=== PATIENT | male | born 1960 | race Caucasian/White ===

== ENCOUNTER 2022-10-15 08:01 | Outpatient (AMB) | payer BC, SELFPAY ==
--- NOTE | 2022-10-15 08:19 | MHC.OFFWIV ---
Intake Vital Signs 10/15/22 08:21 BP 110/62 Blood Pressure Location Rt brachial Position Sitting Respiration 18 Pulse 72 Pulse Source Pulse Oximeter Temp 98.1 F Temp Source Oral Pulse Oximetry (%) 99 Oxygen Delivery Method Room Air Intake Visit Reasons: EP Nasal Drip Patient Tobacco Use Status: Former Tobacco user Gift Wrapper Required: No Allergies No Known Allergies Allergy (Verified 10/15/22 08:28) Medication List - Last Reconciled 10/15/22 by Ping Hobson RN aspirin (Adult Low Dose Aspirin) 81 mg PO DAILY Do you need a note to return to daycare/school/sports/work: No HPI EP Nasal Drip HPI Details Patient presents for a sick visit. Reporting symptoms of sinus congestion, sore throat and difficulty swallowing. Low-grade fever. No family member is sick. No recent travel. Patient reports symptoms of malaise and fatigue. [facility] Social History Patient Tobacco Use Status: Former Tobacco user Physical Exam Vital Signs: Last Vital Signs Temp 98.1 F 10/15/22 08:21 Pulse 72 10/15/22 08:21 Resp 18 10/15/22 08:21 BP 110/62 10/15/22 08:21 Pulse Ox 99 10/15/22 08:21 Oxygen Delivery Method Room Air 10/15/22 08:21 Const General: cooperative and healthy appearing Nutritional Appearance: well nourished Orientation/consciousness: patient oriented x3 Limitations: no limitations HEENT Head: Yes normal to inspection Eyes General: appearance normal, both eyes and all related structures Neck Neck: Yes normal visual inspection Chest Chest palpation & inspection: normal palpation of entire chest wall Resp Effort & Inspection: normal respiratory effort Neuro General: patient oriented x3 Assessment & Plan Assessment & Plan (1) URI (upper respiratory infection): Code(s): J06.9 - Acute upper respiratory infection, unspecified Plan: Antibiotics ordered. Increase fluid intake. Tylenol for aches and pains. If symptoms worsen, follow-up here for a recheck. Coding Level of Care Code Est Pt Level 3 (73419) Diagnoses URI (upper respiratory infection) J06.9
[2022-10-15 08:21] VITALS: BP 110/62; PULSE 72; RESP 18; TEMP 36.7; O2SAT 99
== END 2022-10-15 08:28 | disposition home or self-care (01) ==
PROVIDERS: Visit Provider Internal Medicine
DX: J06.9 Acute upper respiratory infection, unspecified (principal)
CPT/HCPCS: 99213

== ENCOUNTER 2022-10-22 08:01 | Outpatient (AMB) | payer BC, SELFPAY ==
--- NOTE | 2022-10-22 08:03 | AM.OFFWIN_ITS ---
Intake Vital Signs 10/22/22 08:06 Height 5 ft 8 in BP 110/70 Blood Pressure Location Lt brachial Position Sitting Pulse 62 Pulse Source Pulse Oximeter Temp 97.8 F Temp Source Temporal Artery Scan Pulse Oximetry (%) 98 Intake Visit Reasons: EST/ear infection ongoing(lobby) Intake Note: pt is here for c/o ear infection ongoing, pt was here on saturday, was given antibiotics and finished meds on saturday and still feels the pain and hasa drainage Patient Tobacco Use Status: Former Tobacco user Accompanied by: Self / Same As Patient Allergies No Known Allergies Allergy (Verified 10/22/22 08:27) Medication List - Last Reconciled 10/22/22 by Addi Maria MD aspirin (Adult Low Dose Aspirin) 81 mg PO DAILY HPI EST/ear infection ongoing(lobby) HPI Details 62-year-old male presents to the office for a sick visit. Patient reports no improvement since his last visit. Continues to have a postnasal drip, pain on the left side of the throat when he swallows and feels congested. Wearing the CPAP at night is very difficult. COUNTS INCLUDE 234 BEDS AT THE [facility] Social History Patient Tobacco Use Status: Former Tobacco user Physical Exam Vital Signs: Last Vital Signs Temp 97.8 F 10/22/22 08:06 Pulse 62 10/22/22 08:06 BP 110/70 10/22/22 08:06 Pulse Ox 98 10/22/22 08:06 Const General: cooperative and healthy appearing Nutritional Appearance: well nourished Orientation/consciousness: patient oriented x3 Limitations: no limitations HEENT Head: Yes normal to inspection Eyes General: appearance normal, both eyes and all related structures Neck Neck: Yes normal visual inspection Chest Chest palpation & inspection: normal palpation of entire chest wall Resp Effort & Inspection: normal respiratory effort Neuro General: patient oriented x3 Assessment & Plan Assessment & Plan (1) URI (upper respiratory infection): Code(s): J06.9 - Acute upper respiratory infection, unspecified Plan: Amoxicillin, prednisone and Flonase added to the regimen. If symptoms do not improve to follow-up here. Coding Level of Care Code Est Pt Level 3 (15875) Diagnoses URI (upper respiratory infection) J06.9
[2022-10-22 08:06] VITALS: BP 110/70; PULSE 62; TEMP 36.6; O2SAT 98
== END 2022-10-22 08:33 | disposition home or self-care (01) ==
PROVIDERS: Visit Provider Internal Medicine
DX: J06.9 Acute upper respiratory infection, unspecified (principal)
CPT/HCPCS: 99213